=== PATIENT | male | born 1955 | race Caucasian/White ===

== ENCOUNTER 2016-12-09 08:32 | Emergency (ER) | payer OTHER ==
[~2016-12-09] VITALS: Ht 180.3 cm; Wt 90.0 kg
[~2016-12-09 08:32] MED LIST: CLIN1CAP6 PO
[2016-12-09 08:33] VITALS: BP 160/97; PULSE 78; RESP 16; TEMP 98.9; O2SAT 94
[2016-12-09] MEDS ORDERED: ENAL10TA PO (08:42)
--- NOTE | 2016-12-09 08:59 | PD ---
HPI Chief Complaint: Complaint Time Seen by Provider: 08:54 Travel History International Travel<30 days: No Contact w/Intl Traveler<30days: No Traveled to known affect area: No History of Present Illness HPI 61-year-old male came to the emergency room with history of penile lesion that' s been there for past 5 days. Patient had gone to the urgent care where he was given Zithromax which she has finished the course but the lesions are still there. A UA was checked there which was within normal limits he was told. He has some irritation of the skin but no dysuria or hematuria. No penile discharge. Patient is sexually active with his girlfriend he says and without using condoms. She was diagnosed with chlamydia recently. FOR[facility]LY [facility], [facility] Past Medical History Narrative Medical List of his past medical history as reviewed from the nursing note. Diminished Hearing: No Hypertension: Yes Musculoskeletal: Yes (ROTATOR CUFF L SHOULDER ) Tetanus Vaccination: Unknown Influenza Vaccination: No Past Surgical History Appendectomy: Yes Joint Replacement: Yes (L SHOULDER SURGERY ) Social History Alcohol Use: Yes ([facility]) Tobacco Use: No (QUIT LONG TIME AGO) Substance Use: No Allergies-Medications (Allergen,Severity, Reaction): Coded Allergies: Penicillin (Verified Allergy, Unknown, 12/09/16) *MDRO Multi-Drug Resistant Organism (Verified Adverse Reaction, Unknown, 10/15/15) MRSA elsbow wound 10/11/15. Comments List of his allergies reviewed from the nursing note. Reported Meds & Prescriptions Reported Meds & Active Scripts Active Acyclovir 800 Mg Tab 800 Mg PO 5 TIMES A DAY 7 Days Reported Enalapril (Enalapril Maleate) 10 Mg Tab 10 Mg PO DAILY Narrative Medication List of his home medications reviewed from the nursing note. Review of Systems Except as stated in HPI: all other systems reviewed are Neg Physical Exam Narrative GENERAL: Awake, alert, no obvious distress SKIN: Warm and dry. HEAD: Atraumatic. Normocephalic. EYES: Pupils equal and round. No scleral icterus. No injection or drainage. ENT: No nasal bleeding or discharge. Mucous membranes pink and moist. NECK: Trachea midline. No JVD. CARDIOVASCULAR: Regular rate and rhythm. No murmur appreciated. RESPIRATORY: No accessory muscle use. Clear to auscultation. Breath sounds equal bilaterally. GASTROINTESTINAL: Abdomen soft, non-tender, nondistended. Hepatic and splenic margins not palpable. : Multiple Vesicular lesions on the penile skin. Some of them have been deroofed and oozing with erythematous base. MUSCULOSKELETAL: No obvious deformities. No clubbing. No cyanosis. No edema. NEUROLOGICAL: Awake and alert. No obvious cranial nerve deficits. Motor grossly within normal limits. Normal speech. PSYCHIATRIC: Appropriate mood and affect; insight and judgment normal. Data Data Last Documented VS Vital Signs Date Time Temp Pulse Resp B/P Pulse Ox O2 Delivery O2 Flow Rate FiO2 12/09/16 08:42 16 12/09/16 08:33 98.9 78 160/97 94 Room Air MDM Medical Decision Making Medical Screen Exam Complete: Yes Emergency Medical Condition: Yes Medical Record Reviewed: Yes Differential Diagnosis Herpes genitalis Narrative Course 9:44 AM patient will be discharged home on acyclovir prescription. Instructions of been given to him to use condoms while having sex till the lesions are gone. Partner needs to be treated if she has lesions. Procedures EKG Prior to Arrival: No Diagnosis Primary Impression: Herpes genitalis in men Referrals: Primary Care Physician 1 week Additional Instructions: Please return to the ER if the condition worsens or any other new concerns. You should be having sex only wearing condoms until the lesions are gone. Take the medication as per the prescription direction. Department needs to be treated as well in case they have lesions. Med/Other Pt SpecificInfo: Prescription(s) given Scripts Acyclovir 800 Mg [id number] Mg PO 5 TIMES A DAY 7 Days Ref 0 Prov:Jyotsna Vázquez MD 12/09/16 Disposition: 01 DISCHARGE HOME Condition: Stable Jyotsna Vázquez MD Dec 09, 2016 08:59
[2016-12-09] MEDS ORDERED: ACYC800T PO (09:40)
== END 2016-12-09 09:51 | disposition home or self-care (01) ==
LOC: NEPC 08:32
DX: A60.01 Herpesviral infection of penis (principal); I10 Essential (primary) hypertension
CPT/HCPCS: 99283